=== PATIENT | female | born 1990 | race Caucasian/White ===

== ENCOUNTER 2023-12-28 13:26 | Emergency (ER) | payer OTHER, SELFPAY ==
[2023-12-28 13:39] VITALS: BP 121/60; PULSE 90; RESP 18; TEMP 36.9; O2SAT 99; BMI 19.5
--- NOTE | 2023-12-28 13:46 | DI.RAD.S_ITS ---
PROCEDURE: XR CHEST 2V INDICATIONS: R side chest pain, dyspnea TECHNIQUE: 2 views of the chest were acquired. COMPARISON: None. FINDINGS: Surgical changes and devices: None. Lungs and pleura: Patchy opacity is present overlying the right upper lobe. In addition, mild increased opacity is present in the right lower lobe with blunting of the costophrenic angle. Mediastinum: Mediastinal contours are normal. Heart size is normal. Bones and chest wall: No suspicious bony abnormalities. Soft tissues appear unremarkable. IMPRESSION: Mild right effusion with patchy opacities suggestive of pneumonia. Recommend interval follow-up to document resolution. Dictated by: Mikayla Saab M.D. on 12/28/2023 at 14:24 Approved by: Mikayla Saab M.D. on 12/28/2023 at 14:25
[2023-12-28 15:54] VITALS: BP 108/71; PULSE 88; RESP 18; O2SAT 99
[2023-12-28 17:04] LABS: Add Manual Diff / Slide Review NO; Basophils Absolute Auto 0 /uL (0-100); Basophils Percent Auto 0.8 % (0-2); Eosinophils Absolute Auto 0 /uL (0-450); Eosinophils Percent Auto 0.7 % (2-4); Hematocrit 36.1 % (36-46); Hemoglobin 12.4 g/dL (12.0-16.0); Lymphocytes Absolute Auto 600 /uL (1100-4500); Lymphocytes Percent Auto 9.7 % (25-40); Mean Corpuscular HGB Conc 34.3 % (30-36); Mean Corpuscular Hemoglobin 31.5 PG (26-34); Mean Corpuscular Volume 91.8 fL (80-100); Monocytes Absolute Auto 600 /uL (0-900); Monocytes Percent Auto 8.8 % (3-14); Neutrophils Absolute Auto 5100 /uL (1500-7000); Platelet Count 356 X10^3/uL (150-400); Red Blood Cell Count 3.93 X10^6/uL (4.0-5.2); Red Cell Distribution Width 13.2 % (11.6-14.8); White Blood Cell Count 6.4 X10^3/uL (4.5-11.0)
[2023-12-28 17:11] LABS: D Dimer 1763 ng/ml (<500)
[2023-12-28 17:14] LABS: Alanine Aminotransferase 12 IU/L (<35); Albumin 4.1 g/dL (3.5-5.0); Albumin Globulin Ratio 1.1 (1.0-2.8); Alkaline Phosphatase 66 U/L (38-126); Aspartate Aminotransferase 26 IU/L (14-36); BUN Creatinine Ratio 19.6 (6-22); Bilirubin Total 0.6 mg/dL (0.2-1.3); Blood Urea Nitrogen 10 mg/dL (7-17); Calcium 8.9 mg/dL (8.4-10.2); Carbon Dioxide 24 mmol/L (22-32); Chloride 103 mmol/L (98-107); Estimated Glomerular Filt Rate > 60 mL/min (>60); Globulin 3.7 g/dL (1.7-4.1); Glucose 91 mg/dL (70-100); HEMOLYSIS 39 (0-50); Lipase 128 U/L (23-300); Potassium 4.4 mmol/L (3.4-5.1); Sodium 134 mmol/L (137-145); Total Protein 7.8 g/dL (6.3-8.2)
--- NOTE | 2023-12-28 17:28 | DI.CT.S_ITS ---
PROCEDURE: CT ANGIO CHEST PE PROTOCOL INDICATIONS: elvelated dimer; pleuritic chest pain TECHNIQUE: After the administration of intravenous contrast, 2 mm thick sections acquired from the pulmonary apices to the posterior costophrenic angles. 3-dimensional maximum intensity projection (MIP) coronal and sagittal reformats were then acquired through the thorax. For radiation dose reduction, the following was used: automated exposure control, adjustment of mA and/or kV according to patient size. COMPARISON: [facility], CR, XR CHEST 2V, 12/28/2023, 13:54. FINDINGS: Image quality: Diagnostic. Pulmonary arteries: Pulmonary arteries are normal in size, and demonstrate no intraluminal filling defects to suggest central pulmonary embolism. Lower Neck: No enlarged lymph nodes. Thyroid: No thyroid nodules which require sonographic follow up, per consensus guidelines. Axillae: No enlarged lymph nodes. Chest Wall: Unremarkable. Bones: Unremarkable. Lungs and Pleura: There is a moderately sized right-sided pleural effusion, with associated atelectasis. There is irregular infiltrate seen involving the superolateral right upper lobe. The left lung is relatively clear. Heart: Heart size is normal. No pericardial effusion. Thoracic Vessels: No aortic aneurysm. Mediastinum and [place]: No enlarged lymph nodes. Esophagus: No wall thickening. No hiatal hernia. Upper Abdomen: Visualized upper abdomen solid organs and bowel loops appear normal. IMPRESSION: No pulmonary embolus. There is a moderate right-sided pleural effusion, with overlying atelectasis. Irregular infiltrate can be seen involving the superolateral right upper lobe. Dictated by: Rene Rush M.D. on 12/28/2023 at 17:59 Approved by: Rene Rush M.D. on 12/28/2023 at 18:01
[2023-12-28 17:44] LABS: INR 1.1 (0.9-1.3); Prothrombin Time 12.1 SECONDS (9.4-12.5)
[2023-12-28 17:47] LABS: PTT Partial Thromboplastin Tim 37 SECONDS (25.1-36.5)
[2023-12-28 17:52] LABS: Creatine Kinase 41 U/L (30-135)
[2023-12-28 17:52] LABS: Pregnancy Test Serum,Qual Negative (Negative)
[2023-12-28 18:04] LABS: Troponin I < 0.012 ng/mL (0.01-0.034)
[2023-12-28 18:53] VITALS: BP 104/62; PULSE 75; RESP 18; O2SAT 100
--- NOTE | 2023-12-28 18:57 | ED.CHESTPAIN ---
HPI - Chest Pain <Ira Frias PA-C - Last Filed: 12/29/23 16:03> General Chief Complaint: Chest Pain Stated Complaint: lung situation Time Seen by Provider: 12/28/23 16:10 Source: patient Mode of arrival: Ambulatory Limitations: no limitations History of Present Illness HPI narrative: 33-year-old female with no reported past medical history presents to the ED with 2 weeks of pleuritic chest pain. Patient complains of pain in the right lower and right upper chest with deep inspiration. Patient denies that she had a cold or other illness leading to the symptoms. Patient denies fever, chills, nausea, vomiting, abdominal pain, lightheadedness, dizziness, syncope. Patient states that over the last 3 days, her symptoms have worsened, she has a mild cough. Patient states that she felt more sick this morning, felt feverish and fatigued. Patient states that she has had a bad case of pneumonia 8 years ago which was a multi-drug resistant pneumonia for which she was hospitalized for several days and received IV antibiotics. Patient denies smoking. Occasional alcohol use. Denies recreational drug use. No recent travel. No recent, prolonged immobilizations. No exogenous hormones. Related Data Previous Rx's Medication Instructions Recorded azithromycin 250 mg tablet See Rx Instructions PO .COMPLEX #6 12/28/23 (Zithromax Z-George) tabs cefpodoxime 200 mg tablet 200 mg PO Q12H 10 days #20 tabs 12/28/23 Allergies Allergy/AdvReac Type Severity Reaction Status Date / Time nirmatrelvir [From Paxlovid] AdvReac Verified 12/28/23 13:39 ritonavir [From Paxlovid] AdvReac Verified 12/28/23 13:39 Patient History <Ira Frias PA-C - Last Filed: 12/29/23 16:03> Social History Smoking Status: Never smoker Smoking Status: Never smoker alcohol intake frequency: holidays/special occasions only Substance Use Type: does not use Exam <Ira Frias PA-C - Last Filed: 12/29/23 16:03> Initial Vital Signs Initial Vital Signs: Vital Signs Temperature 98.4 F 12/28/23 13:39 Pulse Rate 90 12/28/23 13:39 Respiratory Rate 18 12/28/23 13:39 Blood Pressure 121/60 12/28/23 13:39 Pulse Oximetry 99 12/28/23 13:39 Oxygen Delivery Method Room Air 12/28/23 13:39 <DO Erika Blue Last Filed: 12/31/23 07:12> Initial Vital Signs Initial Vital Signs: Vital Signs Temperature 98.4 F 12/28/23 13:39 Pulse Rate 90 12/28/23 13:39 Respiratory Rate 18 12/28/23 13:39 Blood Pressure 121/60 12/28/23 13:39 Pulse Oximetry 99 12/28/23 13:39 Oxygen Delivery Method Room Air 12/28/23 13:39 Course <Ira Frias PA-C - Last Filed: 12/29/23 16:03> Orders Ordered: ED Orders 12/28/23 13:46 XR chest 2V Stat 12/28/23 16:44 PT [Prothrombin Time INR] Stat PTT [PTT Partial Thromboplastin Jamey] Stat Troponin & CK Cardiac Panel Stat 12/28/23 16:50 CBC Auto Diff [Complete Blood Count AUTO DIFF] Stat CMP [Comprehensive Metabolic Panel] Stat D Dimer Stat Lipase Stat 12/28/23 16:55 Test Serum,Qual Stat 12/28/23 17:28 CT angio chest PE protocol Stat 12/28/23 17:31 EKG-12 Lead Stat Vital Signs Vital signs: Vital Signs - 8 hr 12/28/23 13:39 12/28/23 15:54 12/28/23 18:53 Temperature 98.4 F Pulse Rate 90 88 75 Respiratory Rate 18 18 18 Blood Pressure 121/60 108/71 104/62 Pulse Oximetry 99 99 100 Oxygen Delivery Method Room Air Room Air Room Air <DO Erika Blue Last Filed: 12/31/23 07:12> Orders Ordered: ED Orders 12/28/23 13:46 XR chest 2V Stat 12/28/23 16:44 PT [Prothrombin Time INR] Stat PTT [PTT Partial Thromboplastin Jamey] Stat Troponin & CK Cardiac Panel Stat 12/28/23 16:50 CBC Auto Diff [Complete Blood Count AUTO DIFF] Stat CMP [Comprehensive Metabolic Panel] Stat D Dimer Stat Lipase Stat 12/28/23 16:55 Test Serum,Qual Stat 12/28/23 17:28 CT angio chest PE protocol Stat 12/28/23 17:31 EKG-12 Lead Stat Vital Signs Vital signs: Vital Signs - 8 hr 12/28/23 13:39 12/28/23 15:54 12/28/23 18:53 Temperature 98.4 F Pulse Rate 90 88 75 Respiratory Rate 18 18 18 Blood Pressure 121/60 108/71 104/62 Pulse Oximetry 99 99 100 Oxygen Delivery Method Room Air Room Air Room Air MDM - Chest Pain <Ira Frias PA-C - Last Filed: 12/29/23 16:03> Lab Data 12/28/23 16:50 12/28/23 16:50 Labs: Lab Results 12/28/23 12/28/23 12/28/23 Range/Units 16:44 16:50 16:55 WBC 6.4 (4.5-11.0) X10^3/uL RBC 3.93 L (4.0-5.2) X10^6/uL Hgb 12.4 (12.0-16.0) g/dL Hct 36.1 (36-46) % MCV 91.8 (80-100) fL MCH 31.5 (26-34) PG MCHC 34.3 (30-36) % RDW 13.2 (11.6-14.8) % Plt Count 356 (150-400) X10^3/uL Neut % (Auto) 80.0 H (50-75) % Lymph % (Auto) 9.7 L (25-40) % [place] % (Auto) 8.8 (3-14) % Eos % (Auto) 0.7 L (2-4) % Baso % (Auto) 0.8 (0-2) % Neut # (Auto) 5100 (7586-3920) /uL Lymph # (Auto) 600 L (1279-6466) /uL [place] # (Auto) 600 (0-900) /uL Eos # (Auto) 0 (0-450) /uL Baso # (Auto) 0 (0-100) /uL PT 12.1 (9.4-12.5) SECONDS INR 1.1 (0.9-1.3) APTT 37 H (25.1-36.5) SECONDS D-Dimer 1763 H (<500) ng/ml Sodium 134 L (137-145) mmol/L Potassium 4.4 (3.4-5.1) mmol/L Chloride 103 (98-107) mmol/L Carbon Dioxide 24 (22-32) mmol/L BUN 10 (7-17) mg/dL Creatinine 0.51 L (0.52-1.04) mg/dL Estimated GFR > 60 (>60) mL/min BUN/Creatinine Ratio 19.6 (6-22) Glucose 91 (70-100) mg/dL Calcium 8.9 (8.4-10.2) mg/dL Total Bilirubin 0.6 (0.2-1.3) mg/dL AST 26 (14-36) IU/L ALT 12 (<35) IU/L Alkaline Phosphatase 66 (38-126) U/L Total Creatine Kinase 41 (30-135) U/L Troponin I < 0.012 (0.01-0.034) ng/mL Total Protein 7.8 (6.3-8.2) g/dL Albumin 4.1 (3.5-5.0) g/dL Globulin 3.7 (1.7-4.1) g/dL Albumin/Globulin Ratio 1.1 (1.0-2.8) Lipase 128 (23-300) U/L Serum , Qual Negative (Negative) MDM Narrative Medical decision making narrative: 33-year-old female with no reported past medical history presents to the ED with 2 weeks of pleuritic chest pain. Concern for pneumonia versus PE versus viral URI versus musculoskeletal sprain/strain versus other. Will obtain chest x-ray. Chest x-ray shows mild right-sided effusion with patchy opacities suggestive of pneumonia. Patchy opacities present overlying the right upper lobe. In addition, mild increased opacity is present in the right lower lobe with blunting of the costophrenic angle. Given the history of pleuritic chest pain, obtained labs, D-dimer due to suspicion of PE. D-dimer is elevated to 1763. WBCs normal at 6.4. All other labs normal. Ordered CT PE. CT PE shows no pulmonary embolus. There is moderate right-sided pleural effusion, with overlying atelectasis. Irregular infiltrate can be seen involving the superior lateral right upper lobe. Discussed findings with patient. Prescribed antibiotics for pneumonia. Recommend good hydration. Recommend follow-up with PCP for interval x-rays and evaluation. ED return precautions were discussed with patient. Patient verbalized understanding. Medical records reviewed: Yes <Kristen C Mank, DO - Last Filed: 12/31/23 07:12> Lab Data Labs: Lab Results 12/28/23 12/28/23 12/28/23 Range/Units 16:44 16:50 16:55 WBC 6.4 (4.5-11.0) X10^3/uL RBC 3.93 L (4.0-5.2) X10^6/uL Hgb 12.4 (12.0-16.0) g/dL Hct 36.1 (36-46) % MCV 91.8 (80-100) fL MCH 31.5 (26-34) PG MCHC 34.3 (30-36) % RDW 13.2 (11.6-14.8) % Plt Count 356 (150-400) X10^3/uL Neut % (Auto) 80.0 H (50-75) % Lymph % (Auto) 9.7 L (25-40) % [place] % (Auto) 8.8 (3-14) % Eos % (Auto) 0.7 L (2-4) % Baso % (Auto) 0.8 (0-2) % Neut # (Auto) 5100 (8056-1913) /uL Lymph # (Auto) 600 L (2965-8810) /uL [place] # (Auto) 600 (0-900) /uL Eos # (Auto) 0 (0-450) /uL Baso # (Auto) 0 (0-100) /uL PT 12.1 (9.4-12.5) SECONDS INR 1.1 (0.9-1.3) APTT 37 H (25.1-36.5) SECONDS D-Dimer 1763 H (<500) ng/ml Sodium 134 L (137-145) mmol/L Potassium 4.4 (3.4-5.1) mmol/L Chloride 103 (98-107) mmol/L Carbon Dioxide 24 (22-32) mmol/L BUN 10 (7-17) mg/dL Creatinine 0.51 L (0.52-1.04) mg/dL Estimated GFR > 60 (>60) mL/min BUN/Creatinine Ratio 19.6 (6-22) Glucose 91 (70-100) mg/dL Calcium 8.9 (8.4-10.2) mg/dL Total Bilirubin 0.6 (0.2-1.3) mg/dL AST 26 (14-36) IU/L ALT 12 (<35) IU/L Alkaline Phosphatase 66 (38-126) U/L Total Creatine Kinase 41 (30-135) U/L Troponin I < 0.012 (0.01-0.034) ng/mL Total Protein 7.8 (6.3-8.2) g/dL Albumin 4.1 (3.5-5.0) g/dL Globulin 3.7 (1.7-4.1) g/dL Albumin/Globulin Ratio 1.1 (1.0-2.8) Lipase 128 (23-300) U/L Serum , Qual Negative (Negative) Discharge Plan Departure Patient Disposition: Home Clinical Impression: Atypical chest pain Instructions: DI for Pneumonia -- Adult Activity Restrictions/Additional Instructions: You were evaluated in the ED today for right-sided chest pain. Your x-ray and CT show right-sided pneumonia. Your D-dimer which is an indication of increased clotting was elevated, however your CT did not show any blood clots/pulmonary embolism. Your CT did confirm the right-sided pneumonia as well. You are being prescribed antibiotics. Please take those as prescribed. Please follow-up with your PCP as soon as possible for continued evaluation and repeat x-rays. Return to the ED if you have worsening symptoms, shortness of breath. Prescriptions: New cefpodoxime 200 mg tablet 200 mg PO Q12H 10 Days Qty: 20 0RF Rx Instructions: must administer with a meal/food azithromycin [Zithromax Z-George] 250 mg tablet See Rx Instructions .ROUTE .COMPLEX Qty: 6 0RF Rx Instructions: For 250 mg dose pack: take 500 mg today (day 1), then 250 mg for 4 days (days 2-5) Referrals: Miscellaneous,Doctor, MD [Primary Care Provider] - Stand Alone Forms: Patient Portal/API ED Sign-out <Kristen Mathew DO - Last Filed: 12/31/23 07:12> Cosign ED Attending Irma Attestation: I was immediately available in the department for consultation.
== END 2023-12-28 19:23 | disposition home or self-care (01) ==
PROVIDERS: Emergency Provider Student in an Organized Health Care Education/Training Program
DX: R07.89 Other chest pain (principal)
CPT/HCPCS: 36415; 71046; 71275; 80053; 82550; 83690; 84484; 84703; 85025; 85379; 85610; 85730; 93005; 93010; 99283; 99284; Q9967